=== PATIENT | female | born 1930 | race Caucasian/White ===

== ENCOUNTER 2016-05-21 17:16 | Inpatient (IN) | payer MEDICARE ==
[2016-05-21] MEDS ORDERED: Sodium Chloride 0.9% 1000 ML 1,000 ML IV SCH ×2 (17:30→21:22)
[2016-05-21] MEDS ORDERED: Sodium Chloride 0.9% 1000 ML 1,000 ML ONE (17:35)
--- NOTE | 2016-05-21 17:36 | ERPHSYRPT ---
- History of Present Illness Source: patient Exam Limitations: clinical condition Patient Subjective Stated Complaint: PT BROUGHT TO ED PER EMS FROM HOME-REPORTS CALLED TO SCENE DUE TO PT HAVING A NEAR SYNCOPAL EPISODE-PT WAS COMING BACK FROM HAVING A BOWEL MOVEMENT-PT REPORTS FEELING WEAK ALL OVER-STATES WHEN THIS HAPPENS IT IS NORMALLY DUE TO HER STOMACH PROBLEMS (DIVERTICILITIS) Triage Nursing Assessment: PT PALE WARM ET DRY-ALERT ANSWERING ALL QUESTIONS CORRECTLY-ABD TENDER TO PALP-BOWEL SOUNDS HYPERACTIVE-MOVING ALL EXTREMITIES WITH EASE Prior Episodes: single episode today Timing/Duration: today Precipitating Factors: lightheadedness, nausea Context: sitting Loss of Consciousness: no loss of consciousness Charcter of event(s): almost passed out Hx Tetanus, Diphtheria Vaccination/Date Given: No Hx Influenza Vaccination/Date Given: Yes Hx Pneumococcal Vaccination/Date Given: Yes Immunizations Up to Date: Yes <ABA WATKINS - Last Filed: 05/21/16 19:06> <ABA BRICE - Last Filed: 05/21/16 20:44> - History of Present Illness Time Seen by Provider: 05/21/16 17:20 Physician History: PATIENT WITH HISTORY OF HYPERTENSION, WHILE SITTING ONTO TOILET HAD NEAR SYNCOPE , EASED HERSELF TO THE FLOOR, HAD ASSOCIATED LOWER ABDOMINAL PAIN, AND NAUSEA. DENIES EMESIS, DIARRHEA OR FEVER. FAMILY MEMBER STATES WHEN PATIENT CALLED HER THIS AFTERNOON, SPEECH SEEM SLURRED. (ABA WATKINS) Allergies/Adverse Reactions: No Known Drug Allergies Allergy (Verified 05/21/16 17:26) Home Medications: Amlodipine Besylate [Norvasc] 2.5 mg PO DAILY 08/12/15 [History] - Past Medical History Pertinent Past Medical History: Yes Neurological History: No Pertinent History ENT History: No Pertinent History Cardiac History: Hypertension Respiratory History: No Pertinent History Endocrine Medical History: No Pertinent History Musculoskeletal History: No Pertinent History GI Medical History: Polyps History: No Pertinent History Psycho-Social History: No Pertinent History Female Reproductive Disorders: No Pertinent History - Past Surgical History Past Surgical History: Yes Neuro Surgical History: No Pertinent History Cardiac: No Pertinent History Respiratory: No Pertinent History Gastrointestinal: Cholecystectomy Genitourinary: Other Musculoskeletal: No Pertinent History Female Surgical History: No Pertinent History Other Surgical History: Bladder tie up. Colonoscopy. cataracts removed and implants - Social History Smoking Status: Never smoker Exposure to second hand smoke: No Drug Use: none Patient Lives Alone: No <ABA WATKINS - Last Filed: 05/21/16 19:06> - Review of Systems Constitutional: No Fever, No Chills Eyes: No Symptoms Ears, Nose, & Throat: No Symptoms Respiratory: No Symptoms, No Cough, No Dyspnea Cardiac: No Symptoms, No Chest Pain, No Edema, No Syncope Abdominal/Gastrointestinal: Abdominal Pain, Nausea, No Vomiting, No Diarrhea Genitourinary Symptoms: No Symptoms, No Dysuria Musculoskeletal: No Symptoms, No Back Pain, No Neck Pain Skin: No Rash Neurological: Dizziness, No Focal Weakness, No Sensory Changes Psychological: No Symptoms Endocrine: No Symptoms All Other Systems: Reviewed and Negative <ABA WATKINS Last Filed: 05/21/16 19:06> Physical Exam - Kun Coma Scale Best Eye Response ([place]): (4) open spontaneously Best Verbal Response (Kun): (5) oriented Best Motor Response (Kun): (6) obeys commands Kun Total: 15 - Physical Exam General Appearance: no apparent distress, alert Eye Exam: bilateral eye: PERRL, EOMI Ears, Nose, Throat Exam: normal ENT inspection, pharynx normal, moist mucous membranes, other (ALERT AND APPROPRIATE) Neck Exam: normal inspection, non-tender, supple, full range of motion Respiratory: normal breath sounds, lungs clear, No chest tenderness, No respiratory distress Cardiovascular: regular rate/rhythm, capillary refill <2 sec, No murmur, No pulse deficit Gastrointestinal: soft, normal bowel sounds, tenderness (SUPRAPUBIC TENDERNESS AND LLQ TENDERNESS WITH GUARDING, NO REBOUND TENDERNESS), No distention, No mass Back Exam: normal inspection, normal range of motion, No CVA tenderness, No vertebral tenderness Extremity Exam: normal inspection, normal range of motion, pelvis stable, No tenderness Peripheral Pulses: carotid (R): 2+, carotid (L): 2+, femoral (R): 2+, femoral (L ): 2+, dorsalis-pedis (R): 2+, dorsalis-pedis (L): 2+ Mental Status: alert, oriented x 3, cooperative programmer analyst consultant Exam: normal hearing, normal speech, PERRL, No facial droop Coordination/Gait: normal finger to nose Motor/Sensory: no motor deficit, no sensory deficit, no pronator drift DTR: bicep (R): 2+, bicep (L): 2+, tricep (R): 2+, tricep (L): 2+, knee (R): 2+ , knee (L): 2+, ankle (R): 2+, ankle (L): 2+ Skin Exam: normal color, warm, dry, No rash SpO2 Interpretation: normal SpO2: 99 Oxygen Delivery: Room Air <ABA WATKINS - Last Filed: 05/21/16 19:06> - Course EKG Interpreted by Me: RATE, Sinus Rhythm, Sinus Chicho, NORMAL AXIS <ABA WATKINS - Last Filed: 05/21/16 19:06> - Radiology Exams cxr X-ray Interpretation: Reviewed by me, Negative (copd, aging chest) <ABA BRICE - Last Filed: 05/21/16 20:44> Ordered Tests: Active Orders 24 hr Category Date Time Status Unix Engineer STAT Care 05/21/16 17:27 Active Catheter-Acme Lei STAT Care 05/21/16 20:08 Active EKG-ER Only STAT Care 05/21/16 17:27 Active IV Insertion STAT Care 05/21/16 17:27 Active Orthostatic Vital Signs STAT Care 05/21/16 17:27 Active Rectal Temperature STAT Care 05/21/16 20:08 Active ABDOMEN AND PELVIS W CONTRAST [CT] Stat Exams 05/21/16 17:48 Taken CHEST 1 VIEW (PORTABLE) Stat Exams 05/21/16 17:48 Taken HEAD WITHOUT CONTRAST [CT] Stat Exams 05/21/16 17:27 Taken AMYLASE Stat Lab 05/21/16 17:48 Completed CBC W DIFF Stat Lab 05/21/16 17:42 Completed CMP Stat Lab 05/21/16 17:42 Completed CULTURE,URINE Stat Lab 05/21/16 20:16 Received LIPASE Stat Lab 05/21/16 17:48 Completed PT INR [PROTIME WITH INR] Stat Lab 05/21/16 17:42 Completed TROPONIN Q3H Lab 05/21/16 17:42 Completed TROPONIN Q3H Lab 05/21/16 20:33 Received TROPONIN Q3H Lab 05/21/16 23:30 Ordered TROPONIN Q3H Lab 05/22/16 02:30 Ordered TROPONIN Q3H Lab 05/22/16 05:30 Ordered UA W/ MICROSCOPIC Stat Lab 05/21/16 17:55 Completed Medication Summary Generic Name Dose Route Start Last Admin Trade Name Honey PRN Reason Stop Dose Admin Sodium Chloride 1,000 mls @ 100 mls/hr 05/21/16 17:30 05/21/16 17:38 Sodium Chloride 0.9% 1000 Ml IV 06/20/16 17:29 100 mls/hr .Q10H CAITLYN Administration Discontinued Medications Generic Name Dose Route Start Last Admin Trade Name Honey PRN Reason Stop Dose Admin Fentanyl Citrate 25 mcg 05/21/16 20:35 05/21/16 20:39 Sublimaze 100 Mcg/2 Ml IV 05/21/16 20:36 25 mcg STAT ONE Administration Fentanyl Citrate Confirm 05/21/16 20:38 Sublimaze 100 Mcg/2 Ml Administered 05/21/16 20:39 Dose 100 mcg .ROUTE .STK-MED ONE Sodium Chloride Confirm 05/21/16 17:35 Sodium Chloride 0.9% 1000 Ml Administered 05/21/16 17:36 Dose 1,000 mls @ ud .ROUTE .STK-MED ONE Lab/Rad Data: Laboratory Result Diagrams 05/21/16 17:42 05/21/16 17:42 Laboratory Results 05/21/16 05/21/16 05/21/16 Range/Units 17:55 17:48 17:42 WBC (4.0-10.5) K/mm3 RBC (4.1-5.4) M/mm3 Hgb (12.0-16.0) gm/dl Hct (35-47) % MCV (78-100) fl MCH (26-32) pg MCHC (32-36) g/dl RDW (11.5-14.0) % Plt Count (150-450) K/mm3 MPV (6-9.5) fl Gran % (36.0-66.0) % Lymphocytes % (24.0-44.0) % Monocytes % (0.0-12.0) % Eosinophils % (0.00-5.0) % Basophils % (0.0-0.4) % Basophils # (0-0.4) INR 1.04 (0.8-3.0) Sodium (136-145) mEq/L Potassium (3.5-5.1) mEq/L Chloride (98-107) mEq/L Carbon Dioxide (21-32) mEq/L Anion Gap (5-15) MEQ/L BUN (9-20) mg/dL Creatinine (0.55-1.30) mg/dl Estimated GFR ML/MIN Glucose (70-110) MG/DL Calcium (8.5-10.1) mg/dL Total Bilirubin (0.2-1.0) mg/dL AST (15-37) U/L ALT (12-78) U/L Alkaline Phosphatase (46-116) U/L Troponin I (0.000-0.056) ng/ml Serum Total Protein (6.4-8.2) gm/dL Albumin (3.4-5.0) g/dL Amylase 103 (25-115) U/L Lipase 184 (73-393) U/L Ur Collection Type CATH Urine Color YELLOW (YELLOW) Urine Appearance CLEAR (CLEAR) Urine pH 7.0 (5-6) Ur Specific [place] 1.015 (1.005-1.025) Urine Protein NEGATIVE (Negative) Urine Glucose (UA) NEGATIVE (NEGATIVE) mg/dL Urine Ketones NEGATIVE (NEGATIVE) Urine Nitrite NEGATIVE (NEGATIVE) Urine Bilirubin NEGATIVE (NEGATIVE) Urine Urobilinogen 0.2 (0-1) mg/dL Urine WBC (Auto) TRACE (NEGATIVE) Urine RBC (Auto) TRACE NON-HEM (0-5) Kar/ul Urine Microscopic RBC 0-2 (0-2) /HPF Urine Microscopic WBC 0-2 (0-5) /HPF Urine Bacteria FEW (NEGATIVE) /HPF Specimen Received 05/21/16:1755 05/21/16 05/21/16 05/21/16 Range/Units 17:42 17:42 17:42 WBC 5.6 (4.0-10.5) K/mm3 RBC 4.41 (4.1-5.4) M/mm3 Hgb 13.3 (12.0-16.0) gm/dl Hct 39.4 (35-47) % MCV 89.3 (78-100) fl MCH 30.2 (26-32) pg MCHC 33.8 (32-36) g/dl RDW 12.9 (11.5-14.0) % Plt Count 339 (150-450) K/mm3 MPV 8.6 (6-9.5) fl Gran % 68.9 H (36.0-66.0) % Lymphocytes % 17.8 L (24.0-44.0) % Monocytes % 10.6 (0.0-12.0) % Eosinophils % 1.4 (0.00-5.0) % Basophils % 1.3 (0.0-0.4) % Basophils # 0.07 (0-0.4) INR (0.8-3.0) Sodium 141 (136-145) mEq/L Potassium 3.7 (3.5-5.1) mEq/L Chloride 102 (98-107) mEq/L Carbon Dioxide 27.6 (21-32) mEq/L Anion Gap 14.6 (5-15) MEQ/L BUN 11 (9-20) mg/dL Creatinine 0.68 (0.55-1.30) mg/dl Estimated GFR > 60 ML/MIN Glucose 146 H (70-110) MG/DL Calcium 9.1 (8.5-10.1) mg/dL Total Bilirubin 0.2 (0.2-1.0) mg/dL AST 18 (15-37) U/L ALT 14 (12-78) U/L Alkaline Phosphatase 83 (46-116) U/L Troponin I < 0.017 (0.000-0.056) ng/ml Serum Total Protein 7.5 (6.4-8.2) gm/dL Albumin 3.9 (3.4-5.0) g/dL Amylase (25-115) U/L Lipase (73-393) U/L Ur Collection Type Urine Color (YELLOW) Urine Appearance (CLEAR) Urine pH (5-6) Ur Specific [place] (1.005-1.025) Urine Protein (Negative) Urine Glucose (UA) (NEGATIVE) mg/dL Urine Ketones (NEGATIVE) Urine Nitrite (NEGATIVE) Urine Bilirubin (NEGATIVE) Urine Urobilinogen (0-1) mg/dL Urine WBC (Auto) (NEGATIVE) Urine RBC (Auto) (0-5) Kar/ul Urine Microscopic RBC (0-2) /HPF Urine Microscopic WBC (0-5) /HPF Urine Bacteria (NEGATIVE) /HPF Specimen Received <ABA WATKINS - Last Filed: 05/21/16 19:06> - Progress Discussed with : Renny Will see patient in: hospital (observation) Counseled pt/family regarding: lab results, diagnosis, need for follow-up, rad results <ABA BRICE - Last Filed: 05/21/16 20:44> - Progress Progress Note: 05/21/16 19:06 PATIENT CARE ENDORSED TO DR BRICE AT 1910 FOR DISPOSITION (ABA WATKINS) 05/21/16 20:11 Pt was initially seen per Dr watkins. Pt of Dr Trejo. Lives alone at home. Here with daughter. She has trouble emptying her bladder at night. She was fine yesterday. Today she had a spell where felt like going to pass out, chills, lowered herself to floor. No injury. No headache. Chronic dry cough. No V/D. She has lower abd discomfort. She feels generalized weakness all over. No focal weakness. No known fevers. PE: Awake, alert, anxious. Bladder large. Lungs clear. Cor reg. Neuro: Generally weak but no focal deficits. CT head/abd pending. Will anchor lei. Labs reassuring thus far. 05/21/16 20:34 CT head: anabell 8:06 PM 05/21/2016: No comps. Nonacute senile brain. CT abd/pelvis: anabell 8:13 PM 05/21/2016: Compared to 11/13/13. New 4mm R mid ureteral stone @S1 level w/ mild proximal ureter prominence & moderate hydronephrosis. Urinary bladder markedly distended , R/O outlet obstruction vs neurogenic bladder. Stable small HH, hepatic cyst, sigmoid diverticulosis, & grade 1 L 4 anterolisthesis. Lei placed. >1000ml immediate urine return. 05/21/16 20:43 She feels some better. FEntanyl given. Spoke to Dr Lawson. Will place in observation for presyncope and urinary retention. No sign of infection at this time. (ABA BRICE) <ABA WATKINS - Last Filed: 05/21/16 19:06> - Departure Time of Disposition: 20:44 Departure Disposition: Observation Critical Care Time: No <ABA BRICE - Last Filed: 05/21/16 20:44> - Departure Clinical Impression: Pre-syncope, Urinary retention with incomplete bladder emptying, Ureteral calculus, right Condition: Stable
[2016-05-21 17:45] LABS: BASOPHIL % 1.3 % (0.0-0.4); Eosinophil % 1.4 % (0.00-5.0); Granulocytes % 68.9 % (36.0-66.0); Lymphocytes % 17.8 % (24.0-44.0); Mean Cell Volume 89.3 fl (78-100); Mean Corpuscular Hemoglobin 30.2 pg (26-32); Mean Platelet Volume 8.6 fl (6-9.5); Monocytes % 10.6 % (0.0-12.0); Platelet Count 339 K/mm3 (150-450); Red Blood Count 4.41 M/mm3 (4.1-5.4); Red Cell Distribution Width 12.9 % (11.5-14.0); White Blood Count 5.6 K/mm3 (4.0-10.5)
[2016-05-21 18:11] LABS: LIPASE 184 U/L (73-393)
[2016-05-21 18:13] LABS: ALBUMIN 3.9 g/dL (3.4-5.0); ALKALINE PHOSPHATASE 83 U/L (46-116); ANION GAP 14.6 MEQ/L (5-15); BILIRUBIN,TOTAL 0.2 mg/dL (0.2-1.0); BLOOD UREA NITROGEN 11 mg/dL (9-20); CHLORIDE 102 mEq/L (98-107); Carbon Dioxide 27.6 mEq/L (21-32); Glucose 146 MG/DL (70-110); Potassium 3.7 mEq/L (3.5-5.1); SGOT/AST 18 U/L (15-37); SGPT/ALT 14 U/L (12-78); SODIUM 141 mEq/L (136-145); Total Protein 7.5 gm/dL (6.4-8.2)
[2016-05-21 18:18] LABS: Bacteria FEW /HPF (NEGATIVE); COMPLETE URINE MICROSCOPIC? YES; Collection Type CATH; WBC 0-2 /HPF (0-5)
[2016-05-21 19:05] LABS: INR 1.04 (0.8-3.0); PROTIME 11.6 SECONDS (9.95-12.35)
[2016-05-21] MEDS ORDERED: SUBLIMAZE 100 MCG/2 ML IV ONE (20:35)
[2016-05-21] MEDS ORDERED: SUBLIMAZE 100 MCG/2 ML ONE (20:38)
[2016-05-21] MEDS ORDERED: TYLENOL 325 MG PO PRN (21:22)
[2016-05-21] MEDS ORDERED: SUBLIMAZE 100 MCG/2 ML IV PRN (21:22)
--- NOTE | 2016-05-21 22:04 | XRAY ---
Indication: Cough. Comparison: None Portable chest hyperinflated with a few calcified granulomas. No focal infiltrate, consolidation, or large effusion. Heart is not enlarged. Vascularity normal. Bony thorax intact with mild osteopenia, degenerative changes, and mild scoliosis. Impression: Nonacute hyperinflated chest with chronic features.
--- NOTE | 2016-05-21 22:10 | XRAY ---
Indication: Near syncope. Multiple contiguous axial images obtained through the head without contrast. Comparison: None There is age-appropriate global atrophy and mild periventricular degenerative microvascular ischemia bilaterally. Tiny right external capsule remote lacunar infarct. No acute intracranial hemorrhage, abnormal extra-axial fluid collection, or mass effect. Fourth ventricle is midline without hydrocephalus. Bony calvarium intact. Visualized paranasal sinuses and mastoid air cells are pneumatized and clear. 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 CTDI 69.66
--- NOTE | 2016-05-21 22:17 | XRAY ---
Indication: Pressure in lower abdomen with cramps. Near syncope. Multiple contiguous axial images obtained through the abdomen and pelvis using 80 cc Isovue 370 contrast only. Comparison: November 13, 2013. Lung bases again hyperinflated with minimal bibasilar fibrosis/scarring. Heart is not enlarged. Stable small hiatal hernia. There is now a 4 mm right mid ureteral calculus, approximately S1 level. Proximal right ureter is prominent and there is moderate hydronephrosis consistent with obstructive uropathy. Delayed images demonstrates contrast passing into the distal ureter and bladder. Urinary bladder is markedly distended concerning for either outlet obstruction versus neurogenic bladder. Again previous cholecystectomy. No free fluid/air. Noncontrasted stomach and bowel loops appear nonobstructed. Again scattered sigmoid diverticulosis without diverticulitis. Stable tiny left lobe hepatic cyst. Remaining liver, Agris, spleen, adrenal glands, and kidneys appear unremarkable. There remains mild aortoiliac calcifications. No AAA or pathologic retroperitoneal lymphadenopathy. Osseous structures intact again with moderate levorotoscoliosis, mild/moderate multilevel degenerative spondylosis, and L4 grade 1 spondylolisthesis. Impression: 1. New 4 mm right mid ureteral calculus producing partial obstruction. 2. Abnormally distended urinary bladder. Rule out outlet obstruction versus neurogenic bladder. 3. Stable small hiatal hernia, tiny hepatic cyst, sigmoid diverticulosis, spinal degenerative spondylosis, and L4 grade 1 spondylolisthesis. CTDI 21.93
[2016-05-22 05:44] LABS: BASOPHIL % 0.8 % (0.0-0.4); Eosinophil % 1.5 % (0.00-5.0); Granulocytes % 61.7 % (36.0-66.0); Lymphocytes % 24.6 % (24.0-44.0); Mean Cell Volume 89.1 fl (78-100); Mean Corpuscular Hemoglobin 29.9 pg (26-32); Mean Platelet Volume 8.7 fl (6-9.5); Monocytes % 11.4 % (0.0-12.0); Platelet Count 345 K/mm3 (150-450); Red Blood Count 4.42 M/mm3 (4.1-5.4); Red Cell Distribution Width 13.1 % (11.5-14.0); White Blood Count 5.9 K/mm3 (4.0-10.5)
[2016-05-22 06:09] LABS: ANION GAP 12.2 MEQ/L (5-15); BLOOD UREA NITROGEN 7 mg/dL (9-20); CHLORIDE 108 mEq/L (98-107); Carbon Dioxide 26.9 mEq/L (21-32); Glucose 99 MG/DL (70-110); Potassium 3.8 mEq/L (3.5-5.1); SODIUM 143 mEq/L (136-145); TROPONIN < 0.017 ng/ml (0.000-0.056)
--- NOTE | 2016-05-22 11:18 | PCM.HP ---
History of Present Illness - Chief Complaint Chief Complaint: Presyncope, Ureteral stone, Urinary retention History of Present Illness: is a 86 year old female who reports she became lightheaded in her restroom yesterday, she feels as though she lost consciousness. she has done this many times in the past but hasn't for a very long time. she has had frequent urination as of late, abdomen felt distended. - Review of Systems Constitutional: No Fever, No Chills Cardiac: Syncope, No Chest Pain, No Edema, No Palpitations Abdominal/Gastrointestinal: No Abdominal Pain, No Nausea, No Vomiting, No Diarrhea Genitourinary Symptoms: No Dysuria Skin: No Rash Neurological: No Dizziness, No Focal Weakness, No Sensory Changes All Other Systems: Reviewed and Negative Medications & Allergies Home Medications: Home Medication List Amlodipine Besylate [Norvasc] 2.5 mg PO DAILY 08/12/15 [History Confirmed ] Allergies/Adverse Reactions: Allergies Allergy/AdvReac Type Severity Reaction Status Date / Time No Known Drug Allergies Allergy Verified 05/21/16 17:26 - Past Medical History Past Medical History: Yes Neurological History: No Pertinent History ENT History: No Pertinent History Cardiac History: Hypertension Respiratory History: No Pertinent History Endocrine Medical History: No Pertinent History Musculoskelatal History: No Pertinent History GI Medical History: Diverticulitis, Polyps History: No Pertinent History Pyscho-Social History: No Pertinent History Reproductive Disorders: No Pertinent History - Female History Are you now?: No - Past Surgical History Past Surgical History: Yes Neuro Surgical History: No Pertinent History Cardiac History: No Pertinent History Respiratory Surgery: No Pertinent History GI Surgical History: Cholecystectomy Genitourinary Surgical Hx: Other Musculskeletal Surgical Hx: No Pertinent History Female Surgical History: No Pertinent History Other Surgical History: Bladder tie up. Colonoscopy. cataracts removed and implants - Social History Smoking Status: Never smoker Exposure to second hand smoke: No Alcohol: None Drug Use: none - Physical Exam Vital Signs: Vital Signs - 24 hr Temp Pulse Resp BP Pulse Ox 05/22/16 08:00 20 05/22/16 07:28 97.8 F 87 20 134/61 96 05/22/16 04:00 98.5 F 75 20 146/68 92 L 05/21/16 22:43 98.7 F 86 19 160/68 97 05/21/16 20:54 90 22 175/60 96 05/21/16 20:18 99.2 F 05/21/16 20:17 99.2 F 95 H 15 178/99 100 05/21/16 19:10 95 H 16 156/58 100 05/21/16 19:07 99 05/21/16 18:10 85 22 160/68 96 05/21/16 17:17 97.5 F 79 22 157/71 99 General Appearance: no apparent distress, alert Eye Exam: PERRL/EOMI, eyes nml inspection Ears, Nose, Throat Exam: normal ENT inspection, TMs normal, pharynx normal, moist mucous membranes Cardiovascular Exam: regular rate/rhythm, normal heart sounds, normal peripheral pulses Gastrointestinal/Abdomen Exam: soft, normal bowel sounds, No tenderness, No mass Extremity Exam: normal inspection, normal range of motion, pelvis stable Skin Exam: normal color, warm, dry, No rash Results - Labs Lab/Micro Results: Lab Results-Last 24 Hours 05/21/16 05/22/16 05/22/16 Range/Units 23:43 05:30 05:30 WBC 5.9 (4.0-10.5) K/mm3 RBC 4.42 (4.1-5.4) M/mm3 Hgb 13.2 (12.0-16.0) gm/dl Hct 39.4 (35-47) % MCV 89.1 (78-100) fl MCH 29.9 (26-32) pg MCHC 33.5 (32-36) g/dl RDW 13.1 (11.5-14.0) % Plt Count 345 (150-450) K/mm3 MPV 8.7 (6-9.5) fl Gran % 61.7 (36.0-66.0) % Lymphocytes % 24.6 (24.0-44.0) % Monocytes % 11.4 (0.0-12.0) % Eosinophils % 1.5 (0.00-5.0) % Basophils % 0.8 (0.0-0.4) % Basophils # 0.05 (0-0.4) Sodium 143 (136-145) mEq/L Potassium 3.8 (3.5-5.1) mEq/L Chloride 108 H (98-107) mEq/L Carbon Dioxide 26.9 (21-32) mEq/L Anion Gap 12.2 (5-15) MEQ/L BUN 7 L (9-20) mg/dL Creatinine 0.63 (0.55-1.30) mg/dl Estimated GFR > 60 ML/MIN Glucose 99 (70-110) MG/DL Calcium 8.6 (8.5-10.1) mg/dL Troponin I < 0.017 < 0.017 (0.000-0.056) ng/ml Assessment/Plan (1) Syncope Current Visit: Yes Status: Acute Assessment & Plan: check carotid doppler and echo today, likely related to retention/vasovagal based on history. no evidence of NE Code(s): R55 - SYNCOPE AND COLLAPSE (2) Ureteral calculus, right Current Visit: Yes Status: Acute Assessment & Plan: hydration, check KUB this afternoon for location, no signficant pain at this time Code(s): N20.1 - CALCULUS OF URETER (3) Urinary retention with incomplete bladder emptying Current Visit: Yes Status: Acute Assessment & Plan: possible related to sling surgery 20 years ago, ureteral stone on right would not explain outlet obstruction, keep lei and will likely need urology followup after discharge. Code(s): R33.9 - RETENTION OF URINE, UNSPECIFIED
[2016-05-22] MEDS: NORVASC 5 MG PO SCH (12:47)
--- NOTE | 2016-05-23 06:00 | PCM.NOTE ---
Date and Time: 05/23/16 0557 Subjective Assessment: patient feels well this morning, denies any abdominal pain. tolerating po, no chest pain, no syncope. sat up yesterday on the side of the bed and felt ok Objective Exam General Appearance: no apparent distress, alert Respiratory Exam: normal breath sounds, lungs clear, No respiratory distress Cardiovascular Exam: regular rate/rhythm, normal heart sounds Gastrointestinal/Abdomen Exam: soft, No tenderness, No mass Extremity Exam: normal inspection, normal range of motion OBJECTIVE DATA Vital Signs: Vital Signs - 24 hr Temp Pulse Resp BP Pulse Ox 05/23/16 04:00 98.0 F 73 18 177/69 93 L 05/22/16 23:26 98.7 F 77 20 158/84 94 L 05/22/16 20:00 98.6 F 83 20 153/69 95 05/22/16 16:00 18 05/22/16 15:51 97.7 F 68 18 153/68 96 05/22/16 12:00 98.4 F 71 20 154/68 95 05/22/16 08:00 20 05/22/16 07:28 97.8 F 87 20 134/61 96 Pain Assessment - Last Documented Pain Intensity 5 Pain Scale Used 0-10 Pain Scale Intake and Output: Intake & Output 05/20/16 05/21/16 05/22/16 05/23/16 11:59 11:59 11:59 11:59 Intake Total 366 1133 Output Total 850 2250 Balance -484 -1117 Weight 62.142 kg Lab Results: Lab Results-Last 24 Hours 05/22/16 Range/Units 05:30 Sodium 143 (136-145) mEq/L Potassium 3.8 (3.5-5.1) mEq/L Chloride 108 H (98-107) mEq/L Carbon Dioxide 26.9 (21-32) mEq/L Anion Gap 12.2 (5-15) MEQ/L BUN 7 L (9-20) mg/dL Creatinine 0.63 (0.55-1.30) mg/dl Estimated GFR > 60 ML/MIN Glucose 99 (70-110) MG/DL Calcium 8.6 (8.5-10.1) mg/dL Troponin I < 0.017 (0.000-0.056) ng/ml Radiology Exams: Radiology Procedures Category Date Time Status CAROTID BILATERAL [US] Routine Exams 05/23/16 05:50 Ordered ECHO W/2D AND DOPPLER [US] Routine Exams 05/23/16 05:50 Ordered Multi-Disciplinary Progress Notes: Multi-Disciplinary Progress Notes 05/22/16 09:29 Case Management Note by Laverne Greenwood S/W CRISTOPHER AND NO NEEDS IDENTIFIED AT THIS TIME. WILL CONTINUE TO MONITOR FOR D/C NEEDS. PT CURRENTLY LIVING ALONE AT HOME WITH FAMILY COMMITTED TO DROPPING IN DAILY, AND SHARING RESPONSIBILITY FOR PT. DENIES NEED FOR FURTHER. Initialized on 05/22/16 09:29 - END OF NOTE Assessment/Plan (1) Syncope Current Visit: Yes Status: Acute Assessment & Plan: check echo and carotid dopplers. will ambulate today, based on context and history most likely vasovagal Code(s): R55 - SYNCOPE AND COLLAPSE (2) Ureteral calculus, right Current Visit: Yes Status: Acute Assessment & Plan: will check position but patient has no pain currently Code(s): N20.1 - CALCULUS OF URETER (3) Urinary retention with incomplete bladder emptying Current Visit: Yes Status: Acute Assessment & Plan: will likely need to consult with urology, ?obstruction related to prior sling surgery causing bladder outlet obstruction Code(s): R33.9 - RETENTION OF URINE, UNSPECIFIED
[2016-05-23] MEDS: NORVASC 5 MG PO SCH (07:54)
[2016-05-23] MEDS ORDERED: NON-FORMULARY ITEM (Amlodipine Besylate [Norvasc] 2.5 MG) PO SCH (10:00)
--- NOTE | 2016-05-23 16:34 | XRAY ---
Indication: Syncope. Two-dimensional sonogram and color Doppler imaging of the carotid arteries of the neck was performed. Comparison: None Examination of the right carotid circulation demonstrates tortuous mid to proximal common carotid artery. Minimal eccentric calcified plaquing at the level of the bulb. PSV of the CCA is 74 cm/s. PSV of the ICA is 68 cm/s. ICA/CCA ratio is 0.9. Normal antegrade vertebral artery flow. Examination of the left carotid circulation also demonstrates tortuous common carotid artery. Mild calcified plaquing at the level of the bulb extending into the origin of the external carotid artery. PSV of the CCA is 97 cm/s. PSV of the ICA is 68 cm/s. ICA/CCA ratio is 0.7. Normal antegrade vertebral artery flow. Impression: Minimal/mild bilateral arteriosclerotic disease as detailed. Velocity measurements and ratios are negative for hemodynamically significant flow-limiting stenosis. Comment: Preliminary report was given.
[2016-05-24 06:17] LABS: BASOPHIL % 0.7 % (0.0-0.4); Eosinophil % 3.4 % (0.00-5.0); Granulocytes % 59.7 % (36.0-66.0); Lymphocytes % 25.3 % (24.0-44.0); Mean Cell Volume 90.2 fl (78-100); Monocytes % 10.9 % (0.0-12.0); Platelet Count 342 K/mm3 (150-450); White Blood Count 5.9 K/mm3 (4.0-10.5)
[2016-05-24 06:33] LABS: ALKALINE PHOSPHATASE 67 U/L (46-116); ANION GAP 11.4 MEQ/L (5-15); BILIRUBIN,TOTAL 0.3 mg/dL (0.2-1.0); BLOOD UREA NITROGEN 8 mg/dL (9-20); CHLORIDE 105 mEq/L (98-107); Carbon Dioxide 27.2 mEq/L (21-32); Glucose 143 MG/DL (70-110); Potassium 3.6 mEq/L (3.5-5.1); SGOT/AST 13 U/L (15-37); SGPT/ALT 10 U/L (12-78); SODIUM 140 mEq/L (136-145); Total Protein 6.2 gm/dL (6.4-8.2)
--- NOTE | 2016-05-24 09:04 | PCM.DS ---
Discharge Summary Date of Admission: 05/22/16 11:15 Admitting Physician: ADDIE GRAF Primary Care Provider: KATELYNN BRAY Allergies Allergies No Known Drug Allergies Allergy (Verified 05/21/16 17:26) Hospital Summary - Hospital Course Hospital Course: Admitted for syncope, had diarrhea and was brought to the ER. Echo and carotid dopplers have been done but by history this was felt to be vasovagal. She is feeling well now. She has not had any diarrhea or syncope here. Tolerating po. BP elevated, will recheck manual bp. Pt had bladder outlet obstruction and lei catheter placed; she does not have a urologist currently. Will follow up with urology outpatient, but will be discharged home on folety catheter. - Vitals & Intake/Output Vital Signs: Vital Signs Temperature 98.4 F 05/24/16 04:00 Pulse Rate 72 05/24/16 04:00 Respiratory Rate 20 05/24/16 04:00 Blood Pressure 176/78 05/24/16 04:00 O2 Sat by Pulse Oximetry 95 05/24/16 04:00 Intake & Output: Intake & Output 05/21/16 05/22/16 05/23/16 05/24/16 11:59 11:59 11:59 11:59 Intake Total 1133 2318 Output Total 2250 2425 Balance -1117 -107 - Lab Result Diagrams: 05/24/16 05:10 05/24/16 05:10 Lab Results-Last 24 Hrs: Lab Results-Last 24 Hours 05/24/16 05/24/16 Range/Units 05:10 05:10 WBC 5.9 (4.0-10.5) K/mm3 RBC 4.10 (4.1-5.4) M/mm3 Hgb 12.3 (12.0-16.0) gm/dl Hct 37.0 (35-47) % MCV 90.2 (78-100) fl MCH 30.0 (26-32) pg MCHC 33.2 (32-36) g/dl RDW 13.0 (11.5-14.0) % Plt Count 342 (150-450) K/mm3 MPV 9.0 (6-9.5) fl Gran % 59.7 (36.0-66.0) % Lymphocytes % 25.3 (24.0-44.0) % Monocytes % 10.9 (0.0-12.0) % Eosinophils % 3.4 (0.00-5.0) % Basophils % 0.7 (0.0-0.4) % Basophils # 0.04 (0-0.4) Sodium 140 (136-145) mEq/L Potassium 3.6 (3.5-5.1) mEq/L Chloride 105 (98-107) mEq/L Carbon Dioxide 27.2 (21-32) mEq/L Anion Gap 11.4 (5-15) MEQ/L BUN 8 L (9-20) mg/dL Creatinine 0.69 (0.55-1.30) mg/dl Estimated GFR > 60 ML/MIN Glucose 143 H (70-110) MG/DL Calcium 8.4 L (8.5-10.1) mg/dL Total Bilirubin 0.3 (0.2-1.0) mg/dL AST 13 L (15-37) U/L ALT 10 L (12-78) U/L Alkaline Phosphatase 67 (46-116) U/L Serum Total Protein 6.2 L (6.4-8.2) gm/dL Albumin 3.0 L (3.4-5.0) g/dL - Radiology Exams Ordered Rad Exams-Entire Visit: Radiology Procedures Category Date Time Status CAROTID BILATERAL [US] Routine Exams 05/23/16 05:50 Completed ECHO W/2D AND DOPPLER [US] Routine Exams 05/23/16 05:50 Taken Discharge Exam General Appearance: no apparent distress Neurologic Exam: alert, oriented x 3, cooperative Skin Exam: normal color, warm, dry Respiratory Exam: normal breath sounds, lungs clear, No crackles/rales Cardiovascular Exam: regular rate/rhythm, normal heart sounds, No murmur Gastrointestinal/Abdomen Exam: soft, No tenderness, No distention Extremity Exam: No pedal edema, No swelling Back Exam: normal inspection Final Diagnosis/Problem List - Final Discharge Diagnosis/Problem (1) Syncope Current Visit: Yes Status: Acute Assessment & Plan: Appears vasovagal. Echo and carotid dopplers pending. Has been fine here. Ok to d/c home today. (2) Ureteral calculus, right Current Visit: Yes Status: Acute Assessment & Plan: See urology (3) Urinary retention with incomplete bladder emptying Current Visit: Yes Status: Acute Assessment & Plan: Needs to see urology this week. (4) HTN (hypertension) Current Visit: Yes Status: Chronic Assessment & Plan: Highest bp 170s systolic here, will recheck manually and adjust bp meds as needed. f/u with me in 1 wk. - Discharge Disposition: Home, Self-Care Condition: Stable Prescriptions: Continue Amlodipine Besylate [Norvasc] 2.5 mg PO DAILY Follow up with: KATELYNN BRAY [Primary Care Provider] -
[2016-05-24] MEDS: NORVASC 5 MG PO SCH (11:29)
[2016-05-24] MEDS ORDERED: NORVASC 5 MG PO ONE (11:46)
[2016-05-24 17:58] VITALS: PULSE 97; O2SAT 95
[2016-05-24 17:59] VITALS: BP 152/70
[2016-05-25] MEDS ORDERED: NORVASC 5 MG PO SCH (10:00)
--- NOTE | 2016-05-25 15:14 | ECHO ---
DATE OF PROCEDURE: 05/23/2016 CLINICAL INFORMATION: Syncope. The M-mode 2D, and Doppler echocardiogram including color flow Doppler shows normal contractility of the left ventricle with an ejection fraction calculated at 61%. The left ventricular cavity was normal in size with a dimension of 3.9 cm. There is no apical thrombus present. The septal wall thickness is normal at 0.9 cm. The left ventricular posterior wall thickness is normal with a dimension of 1.0 cm. The mitral valve E to A inflow velocity ratio is 0.8 consistent with impaired left ventricular relaxation. The right ventricle is normal in size and function. The left atrium is normal in size with a dimension of 3.7 cm. The interatrial septum is intact. The right atrium is normal in size. The aortic valve opens well and is trileaflet. The mitral valve leaflets appear thickened. There is mild mitral regurgitation present. There is calcification of tricuspid valve annulus. There is mild tricuspid regurgitation. There is mild pulmonary hypertension with the right ventricular systolic pressure being elevated at 34 mm of [place]. The pulmonic valve is not well visualized. The aortic root is normal with a dimension of 3.1 cm. There is no pericardial effusion present. IMPRESSION: 1) MILD MITRAL REGURGITATION. 2) MILD TRICUSPID REGURGITATION. 3) MILD PULMONARY HYPERTENSION. 4) NORMAL CONTRACTILITY OF THE LEFT VENTRICLE. 5) IMPAIRED LEFT VENTRICULAR RELAXATION.
== END 2016-05-24 19:20 | disposition home or self-care (01) | DRG 312 ==
LOC: ED 17:16 → MED SURG 21:04 → OBSVTOIN 05-22 11:15
PROVIDERS: ADMIT Family Medicine; ATTEND Family Medicine
DX: R55 Syncope and collapse (principal); N20.1 Calculus of ureter; R33.9 Retention of urine, unspecified; I10 Essential (primary) hypertension; Z86.010 Personal history of colon polyps
CPT/HCPCS: 36000; 36415; 51702; 70450; 71010; 74177; 80048; 80053; 81000; 82150; 83690; 84484; 85025; 85610; 87086; 93005; 93041; 93268; 93306; 93880; 96360; 96365; 96374; 99285; G0378; J3010; P9612; A9270-GY

== ENCOUNTER 2016-07-05 12:40 | Emergency (ER) | payer MEDICARE ==
--- NOTE | 2016-07-05 13:24 | ERPHSYRPT ---
- History of Present Illness Time Seen by Provider: 07/05/16 13:21 Source: patient, family, EMS Exam Limitations: no limitations Patient Subjective Stated Complaint: pt arrived per ambulance for weakness and lightheaded that started while she was on the toliet, she states did not have to strain to have bm. Triage Nursing Assessment: pt arrived alert, resp easy, shaking, and states she is weak and light headed at rest, skin w/d pink. no edema noted, pt denies any pain Physician History: The patient is an 86-year-old female with her daughter brought in by ambulance from home where she had a syncopal episode while urinating and defecating on the toilet. These episodes occur every so often to the patient. The been happening for years. Today she was doing fine all morning but when she sat on the toilet, urinated, and was having a bowel movement, she yelled for her daughter and passed out. Her daughter found her slumped over and was briefly unresponsive. The patient would then respond by moaning when her daughter would call her name. The daughter was unable to move her because her daughter had recent back surgery. The daughter was not able to see if the patient was pale because she was slumped over. The patient became nauseated when she recovered and she is also weak. She denies chest pain. Her past medical history is significant for ureteral calculus, syncopal episodes, and hypertension. Witnessed: by family Prior Episodes: single episode today, recent history Timing/Duration: today, resolved prior to arrival, sudden Precipitating Factors: other (urination, defecation) Context: sitting Loss of Consciousness: brief (seconds) Charcter of event(s): collapsed, became unresponsive, felt faint Allergies/Adverse Reactions: No Known Drug Allergies Allergy (Verified 07/05/16 12:49) Home Medications: Amlodipine Besylate 10 mg [Norvasc 10 MG] 20 mg PO DAILY 07/05/16 [History] Hx Tetanus, Diphtheria Vaccination/Date Given: No Hx Influenza Vaccination/Date Given: Yes Hx Pneumococcal Vaccination/Date Given: No (unsure) Immunizations Up to Date: Yes - Past Medical History Pertinent Past Medical History: Yes Neurological History: No Pertinent History ENT History: No Pertinent History Cardiac History: Hypertension Respiratory History: No Pertinent History Endocrine Medical History: No Pertinent History Musculoskeletal History: No Pertinent History GI Medical History: Diverticulitis, Polyps History: No Pertinent History Psycho-Social History: No Pertinent History Female Reproductive Disorders: No Pertinent History - Past Surgical History Past Surgical History: Yes Neuro Surgical History: No Pertinent History Cardiac: No Pertinent History Respiratory: No Pertinent History Gastrointestinal: Cholecystectomy Genitourinary: Other Musculoskeletal: No Pertinent History Female Surgical History: No Pertinent History Other Surgical History: Bladder tie up. Colonoscopy. cataracts removed and implants - Social History Smoking Status: Never smoker Exposure to second hand smoke: Yes Drug Use: none Patient Lives Alone: No - Female History Hx Last Menstrual Period: post - Review of Systems Constitutional: No Fever, No Chills Eyes: No Symptoms Ears, Nose, & Throat: No Symptoms Respiratory: No Cough, No Dyspnea Cardiac: No Chest Pain, No Edema, No Syncope Abdominal/Gastrointestinal: Nausea, No Abdominal Pain, No Vomiting, No Diarrhea Genitourinary Symptoms: No Dysuria Musculoskeletal: No Back Pain, No Neck Pain Skin: No Rash Neurological: No Dizziness, No Focal Weakness, No Sensory Changes Psychological: No Symptoms Endocrine: No Symptoms Hematologic/Lymphatic: No Symptoms Immunological/Allergic: No Symptoms All Other Systems: Reviewed and Negative Physical Exam - Nursing Vital Signs Nursing Vital Signs: Initial Vital Signs Temperature 97.0 F Temperature Source Oral Pulse Rate 91 Respiratory Rate 16 Blood Pressure [] 130/73 Pain Intensity 0 - Kun Coma Scale Best Eye Response ([place]): (4) open spontaneously Best Verbal Response (Kun): (5) oriented Best Motor Response ([place]un): (6) obeys commands Kun Total: 15 - Physical Exam General Appearance: no apparent distress, alert Eye Exam: bilateral eye: normal inspection, PERRL Ears, Nose, Throat Exam: normal ENT inspection, pharynx normal, moist mucous membranes Neck Exam: normal inspection, non-tender, supple, full range of motion Respiratory: normal breath sounds, lungs clear, No chest tenderness, No respiratory distress Cardiovascular: regular rate/rhythm, capillary refill <2 sec, No murmur, No pulse deficit Gastrointestinal: soft, normal bowel sounds, No tenderness, No distention, No mass Pelvic Exam: not done Rectal Exam: not done Back Exam: normal inspection, normal range of motion, No CVA tenderness, No vertebral tenderness Extremity Exam: normal inspection, normal range of motion, pelvis stable, No tenderness Mental Status: alert, oriented x 3, cooperative last sawyer Exam: normal speech, PERRL, No facial droop Coordination/Gait: normal finger to nose Motor/Sensory: no motor deficit, no sensory deficit, no pronator drift Skin Exam: normal color, warm, dry, No rash SpO2 Interpretation: normal SpO2: 91 Oxygen Delivery: Room Air - Course EKG Interpreted by Me: RATE, Sinus Rhythm, NORMAL AXIS, 1st degree AV Block, NORMAL ST-T - CT Exams Head CT Interpretation: Tele-radiologist Report (non acute senile brain, remote right external capsule lacunar infarct per Dr Pham.) Ordered Tests: Active Orders 24 hr Category Date Time Status Medicaid Specialist STAT Care 07/05/16 13:24 Active EKG-ER Only STAT Care 07/05/16 13:24 Active IV Insertion STAT Care 07/05/16 13:24 Active Orthostatic Vital Signs STAT Care 07/05/16 13:24 Active HEAD WITHOUT CONTRAST [CT] Stat Exams 07/05/16 13:24 Completed CBC W DIFF Stat Lab 07/05/16 13:00 Completed CMP Stat Lab 07/05/16 13:00 Completed TROPONIN Stat Lab 07/05/16 13:00 Completed UA W/ MICROSCOPIC Stat Lab 07/05/16 14:50 Completed Medication Summary Discontinued Medications Generic Name Dose Route Start Last Admin Trade Name Freq PRN Reason Stop Dose Admin Sodium Chloride 500 mls @ 999 mls/hr 07/05/16 13:24 07/05/16 13:45 Sodium Chloride 0.9% 1000 Ml IV 07/05/16 13:54 999 mls/hr .Q31M STA Administration Sodium Chloride Confirm 07/05/16 13:44 Sodium Chloride 0.9% 1000 Ml Administered 07/05/16 13:45 Dose 1,000 mls @ ud .ROUTE .STK-MED ONE Lab/Rad Data: Laboratory Result Diagrams 07/05/16 13:00 07/05/16 13:00 Laboratory Results 07/05/16 07/05/16 07/05/16 Range/Units 14:50 13:00 13:00 WBC 7.8 (4.0-10.5) K/mm3 RBC 4.76 (4.1-5.4) M/mm3 Hgb 14.3 (12.0-16.0) gm/dl Hct 42.2 (35-47) % MCV 88.7 (78-100) fl MCH 30.0 (26-32) pg MCHC 33.9 (32-36) g/dl RDW 13.3 (11.5-14.0) % Plt Count 387 (150-450) K/mm3 MPV 9.0 (6-9.5) fl Gran % 68.4 H (36.0-66.0) % Lymphocytes % 22.3 L (24.0-44.0) % Monocytes % 7.6 (0.0-12.0) % Eosinophils % 1.2 (0.00-5.0) % Basophils % 0.5 (0.0-0.4) % Basophils # 0.04 (0-0.4) Sodium 141 (136-145) mEq/L Potassium 3.7 (3.5-5.1) mEq/L Chloride 102 (98-107) mEq/L Carbon Dioxide 26.2 (21-32) mEq/L Anion Gap 16.6 H (5-15) MEQ/L BUN 14 (9-20) mg/dL Creatinine 0.86 (0.55-1.30) mg/dl Estimated GFR > 60 ML/MIN Glucose 135 H (70-110) MG/DL Calcium 9.9 (8.5-10.1) mg/dL Total Bilirubin 0.4 (0.2-1.0) mg/dL AST 22 (15-37) U/L ALT 23 (12-78) U/L Alkaline Phosphatase 93 (46-116) U/L Troponin I < 0.017 (0.000-0.056) ng/ml Serum Total Protein 8.2 (6.4-8.2) gm/dL Albumin 4.4 (3.4-5.0) g/dL Ur Collection Type VOID Urine Color YELLOW (YELLOW) Urine Appearance HAZY (CLEAR) Urine pH 7.0 (5-6) Ur Specific [place] 1.015 (1.005-1.025) Urine Protein NEGATIVE (Negative) Urine Glucose (UA) NEGATIVE (NEGATIVE) mg/dL Urine Ketones NEGATIVE (NEGATIVE) Urine Nitrite NEGATIVE (NEGATIVE) Urine Bilirubin NEGATIVE (NEGATIVE) Urine Urobilinogen 0.2 (0-1) mg/dL Urine WBC (Auto) NEGATIVE (NEGATIVE) Urine RBC (Auto) TRACE-LYSED (0-5) Kar/ul Urine Microscopic RBC 0-2 (0-2) /HPF Urine Microscopic WBC 2-5 (0-5) /HPF Ur Epithelial Cells FEW (FEW) /HPF Urine Bacteria MODERATE (NEGATIVE) /HPF Hyaline Casts 0-2 (0-2) /LPF Specimen Received 07/05/16 1450 - Progress Progress: improved - Departure Time of Disposition: 15:46 Departure Disposition: Home Clinical Impression: Vaso vagal episode, UTI (urinary tract infection) Condition: Stable Critical Care Time: No Additional Instructions: You had a vasovagal syncopal episode today. All of your imaging studies, EKG, and lab work results were normal except for the urine analysis which showed a very mild UTI. You were given a prescription for Macrobid 100 mg twice a day for 7 days. Follow-up as needed. Prescriptions: Nitrofurantoin Macro 100 mg [Macrobid 100MG Capsule] 100 mg PO BID #14 capsule
[2016-07-05 13:37] LABS: BASOPHIL % 0.5 % (0.0-0.4); Eosinophil % 1.2 % (0.00-5.0); Granulocytes % 68.4 % (36.0-66.0); Lymphocytes % 22.3 % (24.0-44.0); Mean Cell Volume 88.7 fl (78-100); Monocytes % 7.6 % (0.0-12.0); Platelet Count 387 K/mm3 (150-450); Red Blood Count 4.76 M/mm3 (4.1-5.4); Red Cell Distribution Width 13.3 % (11.5-14.0); White Blood Count 7.8 K/mm3 (4.0-10.5)
[2016-07-05] MEDS ORDERED: Sodium Chloride 0.9% 1000 ML 1,000 ML ONE (13:44)
[2016-07-05 13:45] LABS: ALBUMIN 4.4 g/dL (3.4-5.0); ALKALINE PHOSPHATASE 93 U/L (46-116); ANION GAP 16.6 MEQ/L (5-15); BILIRUBIN,TOTAL 0.4 mg/dL (0.2-1.0); BLOOD UREA NITROGEN 14 mg/dL (9-20); CHLORIDE 102 mEq/L (98-107); Carbon Dioxide 26.2 mEq/L (21-32); Glucose 135 MG/DL (70-110); Potassium 3.7 mEq/L (3.5-5.1); SGOT/AST 22 U/L (15-37); SGPT/ALT 23 U/L (12-78); SODIUM 141 mEq/L (136-145); Total Protein 8.2 gm/dL (6.4-8.2)
[2016-07-05 13:51] LABS: TROPONIN < 0.017 ng/ml (0.000-0.056)
--- NOTE | 2016-07-05 14:29 | XRAY ---
Indication: Syncope. Multiple contiguous axial images obtained through the head without contrast. Comparison: May 21, 2016. Stable age-appropriate global atrophy, mild periventricular degenerative microvascular ischemia bilaterally, and tiny right external capsule remote lacunar infarct. No acute intracranial hemorrhage, abnormal extra-axial fluid collection, or mass effect. Fourth ventricle is midline without hydrocephalus. Bony calvarium intact. Visualized paranasal sinuses and mastoid air cells are pneumatized and clear. Impression: Stable nonacute senile brain with remote right external capsule lacunar infarct. CTDI 69.66
[2016-07-05 15:15] LABS: COMPLETE URINE MICROSCOPIC? YES; Collection Type VOID
[2016-07-05 15:20] LABS: Bacteria MODERATE /HPF (NEGATIVE); Epithelial Cells FEW /HPF (FEW); Hyaline Casts 0-2 /LPF (0-2)
[2016-07-05 16:10] VITALS: BP 124/78; PULSE 74; O2SAT 97
== END 2016-07-05 16:09 | disposition home or self-care (01) ==
LOC: ED 12:40
DX: R55 Syncope and collapse (principal); N39.0 Urinary tract infection, site not specified
CPT/HCPCS: 36000; 36415; 70450; 80053; 81000; 84484; 85025; 93005; 93041; 96360; 99284